=== PATIENT | male | born 1960 | race Caucasian/White ===

== ENCOUNTER 2019-01-19 14:19 | Outpatient (RCR) | payer MEDICARE, MEDICAID, SELFPAY | END 2019-02-13 00:01 | LOC: WOUND 14:19 | PROVIDERS: Family Provider Nurse Practitioner; Visit Provider Surgery | DX: I96 Gangrene, not elsewhere classified (principal); L97.522 Non-pressure chronic ulcer of other part of left foot with fat layer exposed | CPT/HCPCS: 11042 ==

== ENCOUNTER 2019-02-16 | Outpatient (CLI) | payer MEDICARE, MEDICAID, SELFPAY ==
[2019-02-16 20:52] LABS: INR 5.16 (0.8-1.2)
== END 2019-02-16 23:00 | disposition home or self-care (01) ==
LOC: LAB 10-01 13:18
PROVIDERS: Family Provider Nurse Practitioner; PCP Nurse Practitioner; Visit Provider Nurse Practitioner
DX: I48.91 Unspecified atrial fibrillation (principal)
CPT/HCPCS: 85610

== ENCOUNTER 2019-02-16 21:27 | Emergency (ER) | payer MEDICARE, MEDICAID, SELFPAY ==
[2019-02-16 21:37] VITALS: BP 122/81; PULSE 75; RESP 18; TEMP 36.8; O2SAT 95; BMI 29.6
--- NOTE | 2019-02-17 00:20 | ED_ITS ---
HPI - Extremity Problem General: Chief complaint: Extremity Injury, Lower Stated complaint: ABD PAIN Time Seen by Provider: 02/17/19 00:20 Source: patient Mode of arrival: ambulatory Limitations: no limitations History of Present Illness: HPI Narrative: had foot ulcer debrided today at wound care and has had trouble with bleeding since MD Complaint: other (bleeding) Location: left Radiation: none Relieving factors: nothing Exacerbating factors: nothing Associated symptoms: Reports no associated symptoms Context: other (recent debridement) Review of Systems Skin/Breast: Reports: other (bleeding to L foot ulcer) PFSH ED PFSH: Statuses (acute, chronic, etc) shown below reflect problem list status as previously entered and may not be historically accurate Social History Smoking and tobacco status: former smoker Physical Exam Const: COMMON NORMALS: no apparent distress, oriented x3, no limitations and well nourished Neuro: COMMON NORMALS: oriented x3 Skin: NARRATIVE SKIN EXAM: stage II-III ulcer to plantar L great toe; very scant oozing/bleeding noted Course Vital Signs: Vital signs: Vital Signs Temperature 98.3 F 02/16/19 21:37 Pulse Rate 75 02/16/19 21:37 Respiratory Rate 18 02/16/19 21:37 Blood Pressure 122/81 02/16/19 21:37 Pulse Oximetry 95 02/16/19 21:37 MDM - Extremity (Nontraumatic) MDM Narrative: Medical decision making narrative: bleeding subsided with silver nitrate and surgicel; INR from yesterday noted to be slightly over 5; he tells me he takes 6mg daily and 7.5 on tuesdays and ; will have him skip tmrw dose and take 3mg on Tuesday and have him repeat INR on tuesday. precautions given regarding uncontrollable bleeding from ulcer Discharge Plan Discharge Patient Disposition: Home, Self-Care Clinical Impression: Pressure ulcer of toe Qualifiers: Pressure injury stage: stage 3 Laterality: left Qualified Code(s): L89.893 - Pressure ulcer of other site, stage 3 Condition: Stable Prescriptions: No Action warfarin RF: 0 Discharge Orders: Discharge Order (Routine); Ordered 02/17/19 Ordered By: Mirna Oviedo Referrals: Chanelle Cavazos, FOREST SCIENCE PROFESSOR-C [Primary Care Provider] - Activity Restrictions/Additional Instructions: Keep dressing in place until tomorrow unless you soak through-as instructed re- dress with the dressings given to you and hold pressure x 15-20 mins. If you cannot get bleeding to stop then return to ED. YOUR INR THAT WAS CHECKED YESTERDAY WAS SLIGHTLY OVER 5. I WANT YOU TO SKIP YOUR WARFARIN DOSE FOR TUESDAY AND TAKE HALF YOUR NORMAL DOSE ON TUESDAY. YOU NEED TO HAVE YOUR INR RE-CHECKED ON TUESDAY. Coding Level of Care Code ED Home Child Care Provider for Joe Gilliam Exam Problem Focused
[2019-02-17 02:16] VITALS: BP 140/77; PULSE 94; RESP 14; TEMP 37; O2SAT 97
== END 2019-02-17 02:10 | disposition home or self-care (01) ==
PROVIDERS: Emergency Provider Physician Assistant; Family Provider Nurse Practitioner; PCP Nurse Practitioner
DX: L89.893 Pressure ulcer of other site, stage 3 (principal); Z87.891 Personal history of nicotine dependence
CPT/HCPCS: 99281

== ENCOUNTER 2019-03-07 14:29 | Outpatient (CLI) | payer MEDICARE, MEDICAID, SELFPAY | END 2019-03-07 14:30 | disposition home or self-care (01) | LOC: LAB 14:32 | PROVIDERS: Family Provider Nurse Practitioner; PCP Nurse Practitioner; Visit Provider Internal Medicine Cardiovascular Disease | DX: I48.91 Unspecified atrial fibrillation (principal) | CPT/HCPCS: 85610 ==

== ENCOUNTER 2019-03-09 14:45 | Outpatient (RCR) | payer MEDICARE, MEDICAID, SELFPAY | END 2019-03-16 23:59 | disposition home or self-care (01) | LOC: WOUND 14:45 | PROVIDERS: Family Provider Nurse Practitioner; PCP Nurse Practitioner; Visit Provider Surgery | DX: L97.512 Non-pressure chronic ulcer of other part of right foot with fat layer exposed (principal) | CPT/HCPCS: 11042; 11043 ==

== ENCOUNTER 2019-03-14 17:48 | Outpatient (CLI) | payer MEDICARE, MEDICAID, SELFPAY ==
[2019-03-14 19:18] LABS: INR 1.64 (0.8-1.2)
== END 2019-03-14 17:49 | disposition home or self-care (01) ==
LOC: LAB 17:50
PROVIDERS: Absent Provider Internal Medicine Cardiovascular Disease; Family Provider Nurse Practitioner; PCP Nurse Practitioner; Visit Provider Internal Medicine Cardiovascular Disease
DX: I48.91 Unspecified atrial fibrillation (principal)
CPT/HCPCS: 85610

== ENCOUNTER 2019-03-30 13:47 | Outpatient (RCR) | payer MEDICARE, MEDICAID, SELFPAY | END 2019-04-14 23:59 | disposition home or self-care (01) | LOC: WOUND 13:47 | PROVIDERS: Family Provider Nurse Practitioner; PCP Nurse Practitioner; Visit Provider Surgery | DX: I96 Gangrene, not elsewhere classified (principal); L97.522 Non-pressure chronic ulcer of other part of left foot with fat layer exposed | CPT/HCPCS: 11042 ==

== ENCOUNTER 2019-03-31 18:20 | Outpatient (CLI) | payer MEDICARE, MEDICAID, SELFPAY ==
[2019-03-31 19:24] LABS: INR 2.24 (0.8-1.2)
== END 2019-03-31 18:21 | disposition home or self-care (01) ==
LOC: LAB 18:40
PROVIDERS: Family Provider Nurse Practitioner; PCP Nurse Practitioner; Visit Provider Internal Medicine Cardiovascular Disease
DX: I48.91 Unspecified atrial fibrillation (principal)
CPT/HCPCS: 85610

== ENCOUNTER 2019-04-04 07:16 | Inpatient (IN) | payer MEDICARE, MEDICAID, SELFPAY ==
[2019-04-04] VITALS (8 sets, daily range): BP systolic 133–209; BP diastolic 81–111; PULSE 71–136; RESP 15–30; TEMP 36.4–38.1; O2SAT 89–100; BMI 28.2
--- NOTE | 2019-04-04 07:18 | XR_ITS ---
WS: [id number] XR chest 1V portable [id number] REASON FOR EXAM: dyspnea/cough FINDINGS: Endotracheal tube in adequate position. Seen at the T3 level. Mitral valve replacement carlson ges. There is increased markings seen bilaterally suggesting low-grade pulmonary edema. There is cardiomegaly seen. There is evidence of a single electrode pacemaker with intact wiring. XR/XR chest 1V portable [id number] IMPRESSION: Endotracheal tube satisfactory position at the T3 level Mild congestive heart failure with pulmonary edema. A single electrode pacemaker. Mitral valve replacement with sternotomy changes.
--- NOTE | 2019-04-04 07:18 | CT_ITS ---
WS: [id number] CT HEAD TECHNIQUE: Noncontrast CT of the head obtained from the skullbase to the vertex. CLINICAL INFORMATION: unresponsive COMPARISON: None. DLP: 871.[address] scans at [facility] use at least one of these dose optimization techniques: automat ed exposure control; mA and/or kV adjustment per patient size (includes targeted exams where dose is matched to clinical indication); or iterative reconstruction. FINDINGS: Acute hemorrhagic subdural hematoma measuring 1.7 cm in maximum transverse dimension. This extends ov erlying the left cerebral convexity and left temporal lobe. This extends inferiorly to the inferior f rontal lobe. Hemorrhagic blood products extend along the left middle cranial fossa. Large amount of l eft to right mass effect with subfalcine herniation. Midline shift measures 2.0 cm. Effacement of the left lateral ventricle. Early trapping of the right occipital and temporal horn. Subdural blood products along the falx. Additional subdural blood products along the left greater rolando n right tentorium. Effacement of the suprasellar cistern. Effacement of the ambient cisterns. Fourth ventricle remains patent. Mild supratentorial mass effect. Mastoid air cells well aerated. Fluid with in the right maxillary sinus. Notified Paresh Olivarez DO at 04/04/2019 8:15AM. CT/CT head wo con* [id number] IMPRESSION: 1. Large left frontal convexity acute subdural hematoma extending over the lef t frontoparietal lobes and into the left middle cranial fossa. 2. Large amount of left right midline shift with subfalcine herniation. Left t o right midline shift measures 2 cm. 3. Effacement of the left lateral ventricle. Trapping of the right occipital h orn and right temporal horn. 4. Suprasellar cistern is effaced with effacement of the ambient cisterns. Eff acement of the prepontine cistern. 5. Fourth ventricle remains patent. 6. Additional subdural blood products along the falx and left greater than rig ht tentorium.
--- NOTE | 2019-04-04 07:19 | ED_ITS ---
Entered by Beatris Banda, acting as scribe for Paresh Olivarez DO HPI - General Adult General: Chief complaint: Altered Mental Status Stated complaint: unresponsive Time Seen by Provider: 04/04/19 07:19 Source: EMS Mode of arrival: EMS Limitations: other (unresponsive) History of Present Illness: HPI narrative: 59-year-old male, per ems pt was found down at home, spouse called EMS to the home due to him being unresponsive. Ems states the pt was found in his chair slumped over, pt did move one foot but would not respond so they intubated him. pt was brought to ED for further evaluation , pt is unable to respond or any questions no family. MD complaint: unresponsive Onset (ago): day(s) Severity: severe Treatments prior to arrival: other (EMS intubated pt.) Review of Systems General: Reports: ROS unobtainable due to medical condition (unresponsive, intubated,no family) PFS ED PFSH: Medical History Atrial fibrillation Chronic anticoagulation Hypertension Marfan syndrome Retinal detachment Surgical History History of aortic valve repair History of cataract surgery History of mitral valve repair History of orthopedic surgery Knee Family History Father Marfans syndrome Social History Smoking and tobacco status: unknown if ever smoked Physical Exam Const: EXAM LIMITATIONS: altered mental status GENERAL APPEARANCE: in distress NUTRITIONAL APPEARANCE: obese ORIENTATION/CONSCIOUSNESS: Yes obtunded HENMT: COMMON NORMALS: normocephalic, head/scalp atraumatic, hearing grossly normal bilaterally, external ears normal, EAC's normal, TM's normal bilaterally, nasal mucous membranes and turbinates normal, moist oral mucous membranes and oropharynx normal HEAD & SCALP: normocephalic and atraumatic NOSE: nasal mucous membranes and turbinates normal EXTERNAL EAR: Yes external ears normal EXTERNAL AUDITORY CANAL: EAC's normal TYMPANIC MEMBRANE: TM's normal bilaterally Eye: COMMON NORMALS: PERRL, EOMs intact bilaterally, conjunctivae normal and no scleral icterus CONJUNCTIVA: Yes conjunctivae normal PUPIL: Yes PERRL Neck/C-Spine: COMMON NORMALS: no lymphadenopathy, supple and no JVD Lymph: LYMPHATIC: no lymphadenopathy noted and no lymphedema noted Resp: EFFORT & INSPECTION: Yes respiratory distress and Yes uses accessory muscles AUSCULTATION: rhonchi and diminished lung sounds Cardio: COMMON NORMALS: no JVD, regular rate, regular rhythm and no murmurs RATE: regular rate RHYTHM: regular rhythm GI: COMMON NORMALS: soft to palpation and no hepatosplenomegaly AUSCULTATION: Yes normoactive bowel sounds PALPATION: Yes soft, No tender, No guarding and Yes no hepatosplenomegaly Extremity: COMMON NORMALS: normal to inspection, normal capillary refill, no clubbing, cyanosis or edema, no calf tenderness and no pedal edema Skin: COMMON NORMALS: no rashes or lesions noted GENERAL SKIN EXAM: no rashes or lesions noted Course ED course: Patient initially came in in severe respiratory distress he was intubated and started on ventilator initially family was inconclusive there was some friends available and a aunt and uncle but they did not wish to make any decisions regarding his care and referred it to a brother. He was not available initially. They did not believe they wanted to transfer him. Also asked about using reversal agents for his Coumadin and they declined that defer to his brother's decision as well. When the brother arrived he discussed the case with myself and after long discussion decided they did not wish to do anything. He asked that the patient be extubated and given comfort cares. Patient has a very large subdural hematoma and already shown signs of effacement of the cerebellar tonsils. It is unknown length of time since this began they do not wish to pursue any treatment they are afraid he may be left with significant deficits which is definitely possible. He has other comorbidities that they recognize and do not wish to go any further on this. This was verified with the sugar house supervisor and the patient's nurse present in the room brother reiterated he wanted comfort cares only. Reevaluation(s): Reevaluation #1: had a conversation with pt brother they want to make him comfort care Vital Signs: Vital signs: Vital Signs Temperature 103.6 F H 04/05/19 01:28 Pulse Rate 59 L 04/05/19 05:25 Respiratory Rate 18 04/05/19 05:25 Blood Pressure 130/58 04/05/19 05:25 Pulse Oximetry 82 L 04/05/19 05:25 MDM - General Adult Lab Data: Labs: Lab Results 04/04/19 04/04/19 04/04/19 Range/Units 07:20 07:20 07:20 WBC 12.8 H (4.0-10.0) 10^3/ uL RBC 3.73 L (4.1-5.3) 10^6/u L Hgb 11.4 L (11.7-16.6) g/dL Hct 36.1 L (42.0-52.0) % MCV 96.8 H (80-94) fL MCH 30.6 (28.0-34.0) pg MCHC 31.6 (30.0-36.0) g/dL RDW 14.5 (12.1-15.1) % Plt Count 210 (130-400) 10^3/c mm MPV 9.9 (7.4-10.4) fL Neut % (Auto) 84.1 % Lymph % (Auto) 7.7 % Traverse % (Auto) 5.5 % Eos % (Auto) 1.6 % Baso % (Auto) 0.3 % Neut # (Auto) 10.8 H (1.8-7.7) 10^3/u L Lymph # (Auto) 1.0 (0.8-4.8) 10^3/u L Traverse # (Auto) 0.7 (0.2-0.9) 10^3/u L Eos # (Auto) 0.2 (0.0-0.8) 10^3/u L Baso # (Auto) 0.0 (0.0-0.1) 10^3/u L Nucleated RBC % (a uto) 0 % Nucleated RBCs # 0.0 /100WBC PT (10.5-13.3) SECO NDS INR (0.8-1.2) APTT (23.9-36.7) SECO NDS Specimen Type Sample Site ABG pH (7.35-7.45) ABG pCO2 (35-45) mmHg ABG pO2 (80.0-100.0) mmH g ABG HCO3 (22-26) mmol/L ABG O2 Saturation ABG Base Excess (-2.0-2.0) mmol/ L Alexandro Test A-a O2 Gradient (5-10) mmHg Hematocrit (42-52) % Hgb O2 Saturation (95-100) % Carboxyhemoglobin (0.4-20.1) %THgb Methemoglobin (0.4-1.5) % Total Hemoglobin (14-18) g/dL Ionized Calcium (1.1-1.4) mmol/L O2 Delivery Device FiO2 % Evp Chief Exploration Officer ID Sodium 136 (136-145) mmol/L Potassium 4.4 (3.5-5.1) mmol/L Chloride 101 (98-107) mmol/L Carbon Dioxide 23 (22-29) mmol/L Anion Gap 16.4 (5-19) BUN 16 (6-20) mg/dL Creatinine 0.9 (0.7-1.2) mg/dL GFR Calculation 86.7 L (90-130) mL/min Glucose 186 H (65-115) mg/dL Calcium 9.5 (8.5-10.5) mg/dL Total Bilirubin 0.8 (0.15-1.2) mg/dL AST 27 (0-40) U/L ALT 19 (0-41) U/L Alkaline Phosphata se 111 (40-130) IU/L Creatine Kinase 308 (39-308) U/L CK-MB (CK-2) 3.5 (0-10.4) ng/mL CK-MB (CK-2) Rel I ndex (0.0-5.3) % Troponin T Baselin e 8 (0-15) ng/mL Troponin T 120 Min igiugig (0-15) ng/mL Delta Troponin T (0-10) ABS# NT-Pro-B Natriuret Pep (0-125) pg/mL Total Protein 7.9 (6.6-8.7) g/dL Albumin 3.7 (3.5-5.2) g/dL Globulin 4.2 (1.3-4.6) g/dL Lipase 14 (13-60) U/L Urine Color (Yellow) Urine Appearance (CLEAR) Urine pH (5-7) Ur Specific Gravit y (1.005-1.030) Urine Protein (Negative) Urine Glucose (UA) (Normal) Urine Ketones (Negative) Urine Occult Blood (Negative) Urine Nitrate (Negative) Urine Bilirubin (NEGATIVE) Urine Urobilinogen (Negative) mg/dL Ur Leukocyte Skylar ase (Negative) Urine RBC (0-2) /hpf Urine WBC (0-5) /hpf Ur Squamous Epith Cells (0-5) Urine Bacteria (NONE) Serum Ketones (Negative) 04/04/19 04/04/19 04/04/19 Range/Units 07:20 07:20 07:20 WBC (4.0-10.0) 10^3/ uL RBC (4.1-5.3) 10^6/u L Hgb (11.7-16.6) g/dL Hct (42.0-52.0) % MCV (80-94) fL MCH (28.0-34.0) pg MCHC (30.0-36.0) g/dL RDW (12.1-15.1) % Plt Count (130-400) 10^3/c mm MPV (7.4-10.4) fL Neut % (Auto) % Lymph % (Auto) % Traverse % (Auto) % Eos % (Auto) % Baso % (Auto) % Neut # (Auto) (1.8-7.7) 10^3/u L Lymph # (Auto) (0.8-4.8) 10^3/u L Traverse # (Auto) (0.2-0.9) 10^3/u L Eos # (Auto) (0.0-0.8) 10^3/u L Baso # (Auto) (0.0-0.1) 10^3/u L Nucleated RBC % (a uto) % Nucleated RBCs # /100WBC PT 29.40 H (10.5-13.3) SECO NDS INR 2.74 H (0.8-1.2) APTT 58.1 H (23.9-36.7) SECO NDS Specimen Type Sample Site ABG pH (7.35-7.45) ABG pCO2 (35-45) mmHg ABG pO2 (80.0-100.0) mmH g ABG HCO3 (22-26) mmol/L ABG O2 Saturation ABG Base Excess (-2.0-2.0) mmol/ L Alexandro Test A-a O2 Gradient (5-10) mmHg Hematocrit (42-52) % Hgb O2 Saturation (95-100) % Carboxyhemoglobin (0.4-20.1) %THgb Methemoglobin (0.4-1.5) % Total Hemoglobin (14-18) g/dL Ionized Calcium (1.1-1.4) mmol/L O2 Delivery Device FiO2 % Evp Chief Exploration Officer ID Sodium (136-145) mmol/L Potassium (3.5-5.1) mmol/L Chloride (98-107) mmol/L Carbon Dioxide (22-29) mmol/L Anion Gap (5-19) BUN (6-20) mg/dL Creatinine (0.7-1.2) mg/dL GFR Calculation (90-130) mL/min Glucose (65-115) mg/dL Calcium (8.5-10.5) mg/dL Total Bilirubin (0.15-1.2) mg/dL AST (0-40) U/L ALT (0-41) U/L Alkaline Phosphata se (40-130) IU/L Creatine Kinase (39-308) U/L CK-MB (CK-2) (0-10.4) ng/mL CK-MB (CK-2) Rel I ndex (0.0-5.3) % Troponin T Baselin e (0-15) ng/mL Troponin T 120 Min igiugig (0-15) ng/mL Delta Troponin T (0-10) ABS# NT-Pro-B Natriuret Pep 1522 H (0-125) pg/mL Total Protein (6.6-8.7) g/dL Albumin (3.5-5.2) g/dL Globulin (1.3-4.6) g/dL Lipase (13-60) U/L Urine Color (Yellow) Urine Appearance (CLEAR) Urine pH (5-7) Ur Specific Gravit y (1.005-1.030) Urine Protein (Negative) Urine Glucose (UA) (Normal) Urine Ketones (Negative) Urine Occult Blood (Negative) Urine Nitrate (Negative) Urine Bilirubin (NEGATIVE) Urine Urobilinogen (Negative) mg/dL Ur Leukocyte Skylar ase (Negative) Urine RBC (0-2) /hpf Urine WBC (0-5) /hpf Ur Squamous Epith Cells (0-5) Urine Bacteria (NONE) Serum Ketones Negative (Negative) 04/04/19 04/04/19 04/04/19 Range/Units 07:28 08:04 09:05 WBC (4.0-10.0) 10^3/ uL RBC (4.1-5.3) 10^6/u L Hgb (11.7-16.6) g/dL Hct (42.0-52.0) % MCV (80-94) fL MCH (28.0-34.0) pg MCHC (30.0-36.0) g/dL RDW (12.1-15.1) % Plt Count (130-400) 10^3/c mm MPV (7.4-10.4) fL Neut % (Auto) % Lymph % (Auto) % Traverse % (Auto) % Eos % (Auto) % Baso % (Auto) % Neut # (Auto) (1.8-7.7) 10^3/u L Lymph # (Auto) (0.8-4.8) 10^3/u L Traverse # (Auto) (0.2-0.9) 10^3/u L Eos # (Auto) (0.0-0.8) 10^3/u L Baso # (Auto) (0.0-0.1) 10^3/u L Nucleated RBC % (a uto) % Nucleated RBCs # /100WBC PT (10.5-13.3) SECO NDS INR (0.8-1.2) APTT (23.9-36.7) SECO NDS Specimen Type Arterial Sample Site Radial, left ABG pH 7.27 L (7.35-7.45) ABG pCO2 53.6 H (35-45) mmHg ABG pO2 339.0 H* (80.0-100.0) mmH g ABG HCO3 24.6 (22-26) mmol/L ABG O2 Saturation 100.0 ABG Base Excess -2.9 L (-2.0-2.0) mmol/ L Alexandro Test Pos A-a O2 Gradient 307.3 H (5-10) mmHg Hematocrit 35.3 L (42-52) % Hgb O2 Saturation 97.8 (95-100) % Carboxyhemoglobin 1.1 (0.4-20.1) %THgb Methemoglobin 1.1 (0.4-1.5) % Total Hemoglobin 11.5 L (14-18) g/dL Ionized Calcium 1.2 (1.1-1.4) mmol/L O2 Delivery Device Ambu FiO2 100.0 % Evp Chief Exploration Officer ID cak Sodium 140.0 (136-145) mmol/L Potassium 4.1 (3.5-5.1) mmol/L Chloride (98-107) mmol/L Carbon Dioxide (22-29) mmol/L Anion Gap (5-19) BUN (6-20) mg/dL Creatinine (0.7-1.2) mg/dL GFR Calculation (90-130) mL/min Glucose 174.0 H (65-115) mg/dL Calcium (8.5-10.5) mg/dL Total Bilirubin (0.15-1.2) mg/dL AST (0-40) U/L ALT (0-41) U/L Alkaline Phosphata se (40-130) IU/L Creatine Kinase (39-308) U/L CK-MB (CK-2) (0-10.4) ng/mL CK-MB (CK-2) Rel I ndex (0.0-5.3) % Troponin T Baselin e (0-15) ng/mL Troponin T 120 Min igiugig 9.78 (0-15) ng/mL Delta Troponin T 1.78 (0-10) ABS# NT-Pro-B Natriuret Pep (0-125) pg/mL Total Protein (6.6-8.7) g/dL Albumin (3.5-5.2) g/dL Globulin (1.3-4.6) g/dL Lipase (13-60) U/L Urine Color Yellow (Yellow) Urine Appearance Clear (CLEAR) Urine pH 5 (5-7) Ur Specific Gravit y 1.015 (1.005-1.030) Urine Protein 1+ H (Negative) Urine Glucose (UA) Norm (Normal) Urine Ketones 1+ H (Negative) Urine Occult Blood Trace H (Negative) Urine Nitrate Negative (Negative) Urine Bilirubin Neg (NEGATIVE) Urine Urobilinogen Norm (Negative) mg/dL Ur Leukocyte Skylar ase Negative (Negative) Urine RBC 0-4 H (0-2) /hpf Urine WBC Rare (0-5) /hpf Ur Squamous Epith Cells 0-4 H (0-5) Urine Bacteria Trace (NONE) Serum Ketones (Negative) Discharge Plan Discharge Patient Disposition: Placed in Observation Admit Provider: Lauren Banks Clinical Impression: Subdural hematoma Condition: Interventions: ED Discharge Assessment Last Done: 04/04/19 12:34 Discharge Date/Time: 04/04/19 12:48 Coding Level of Care Code ED Detasseler for Chg Fwd Exam Comprehensive The documentation recorded by the Solo johns Bridget Annette, accurately reflects the service I personally performed and the decisions made by Juanis ching Curtis L, DO Apr 04, 2019 07:16
[2019-04-04 07:38] LABS: Hematocrit 36.1 % (42.0-52.0); Hemoglobin 11.4 g/dL (11.7-16.6); Mean Corpuscular HGB Conc 31.6 g/dL (30.0-36.0); Mean Corpuscular Hemoglobin 30.6 pg (28.0-34.0); Mean Corpuscular Volume 96.8 fL (80-94); Red Blood Count 3.73 10^6/uL (4.1-5.3); White Blood Count 12.8 10^3/uL (4.0-10.0)
[2019-04-04 07:39] LABS: Basophils % 0.3 %; Eosinophils % 1.6 %; Lymphocytes % 7.7 %; Mean Platelet Volume 9.9 fL (7.4-10.4); Monocytes % 5.5 %; Neutrophils # 10.8 10^3/uL (1.8-7.7); Neutrophils % 84.1 %; Platelet Count 210 10^3/cmm (130-400); Red Cell Distribution Width 14.5 % (12.1-15.1)
[2019-04-04 07:39] LABS: ABG PCO2 53.6 mmHg (35-45); ABG PH Result 7.27 (7.35-7.45); Alveolar-Arterial Oxygen Gradi 307.3 mmHg (5-10); Arterial Blood Gas Hematocrit 35.3 % (42-52); Base Excess ABG -2.9 mmol/L (-2.0-2.0); Blood Gas Allen Test Pos; Blood Gas Sample Site Radial, left; Blood Gas Sample Type Arterial; Carboxyhemoglobin 1.1 %THgb (0.4-20.1); HCO3 ABG 24.6 mmol/L (22-26); HGB O2 Sat 97.8 % (95-100); Ionized Calcium Level - ABG 1.2 mmol/L (1.1-1.4); Methemoglobin 1.1 % (0.4-1.5); Oxygen Device AMBU; Potassium Level - ABG 4.1 mmol/L (3.5-5.0); Total Hemoglobin 11.5 g/dL (14-18)
[2019-04-04 07:40] LABS: Eosinophils # 0.2 10^3/uL (0.0-0.8); Monocytes # 0.7 10^3/uL (0.2-0.9); Nucleated Red Blood Cells % 0 %
[2019-04-04 07:53] LABS: Ketone (Acetest) Serum Negative (Negative)
--- NOTE | 2019-04-04 07:57 | XR_ITS ---
WS: [id number] XR chest 1V portable [id number] REASON FOR EXAM: intubated FINDINGS: Endotracheal tube is seen in the tip is 4.75 cm from the cooper. The single electrode pacemaker is noted. Mitral valve replacement changes. With sternotomy findings. There appears to be mild alveolar infiltrates bilaterally suggesting mild pulmonary edema. XR/XR chest 1V portable [id number] IMPRESSION: Endotracheal tube satisfactory position. A feeding tube is seen the tip is not well identified but appears to be in the stomach area. There is mild pulmonary edema. Cardiomegaly.
[2019-04-04 08:03] LABS: Alanine Aminotransferase 19 U/L (0-41); Albumin Level 3.7 g/dL (3.5-5.2); Alkaline Phosphatase 111 IU/L (40-130); Anion Gap 16.4 (5-19); Aspartate Amino Transferase 27 U/L (0-40); Blood Urea Nitrogen 16 mg/dL (6-20); Calcium 9.5 mg/dL (8.5-10.5); Carbon Dioxide 23 mmol/L (22-29); Chloride 101 mmol/L (98-107); Globulin 4.2 g/dL (1.3-4.6); Glomerular Filtration Rate 86.7 mL/min (90-130); Glucose 186 mg/dL (65-115); Potassium 4.4 mmol/L (3.5-5.1); Sodium 136 mmol/L (136-145); Total Bilirubin 0.8 mg/dL (0.15-1.2); Total Protein 7.9 g/dL (6.6-8.7)
[2019-04-04 08:04] LABS: Troponin(5th) Baseline 8 ng/mL (0-15)
[2019-04-04 08:05] LABS: Lipase 14 U/L (13-60)
[2019-04-04 08:17] LABS: Creatine Phosphokinase 308 U/L (39-308)
[2019-04-04 08:25] LABS: NT Pro B Type Natriuretic Pept 1522 pg/mL (0-125)
[2019-04-04 08:37] LABS: CKMB 3.5 ng/mL (0-10.4)
[2019-04-04 08:41] LABS: Protein Urine 1+ (Negative); Specific Gravity, Urine 1.015 (1.005-1.030); Urine Appearance Clear (CLEAR); Urine Color Yellow (Yellow); pH Urine 5 (5-7)
[2019-04-04 08:42] LABS: Add Urine Microscopic? YES; Bilirubin Urine Neg (NEGATIVE); Blood Urine Trace (Negative); Glucose Urine UA Norm (Normal); Ketones Urine 1+ (Negative); Leukocyte Esterase Urine Negative (Negative); Nitrate Urine Negative (Negative); Urobilinogen Urine Norm (Negative)
[2019-04-04 08:52] LABS: Add Urine Culture? No; Bacteria Urine TRACE; RBC Urine 0-4 /hpf (0-2); Squamous Epithelial Cell Urine 0-4 (0-5); WBC Urine RARE /hpf (0-5)
[2019-04-04 08:57] LABS: INR 2.74 (0.8-1.2); Partial Thromboplastin Time 58.1 SECONDS (23.9-36.7)
--- NOTE | 2019-04-04 09:40 | PC.NURSE ---
patient extubated per agreement by brother. consent witnessed by household assistant, primary nurse and emd
[2019-04-04 09:41] LABS: Troponin 5 2HR 9.78 ng/mL (0-15); Troponin 5 2HR Delta 1.78 ABS# (0-10)
[2019-04-04] MEDS: LORazepam 2 mg/mL INJ 1 mL (09:51)
[2019-04-04] MEDS: LORazepam 2 mg/mL INJ 1 mL 1 MG IVP (09:55)
[2019-04-04] MEDS: morphine 4 mg/mL SDV 1 mL IVP (10:06)
--- NOTE | 2019-04-04 10:37 | PC.CHAP ---
Pastoral Care Encounter/Spiritual Assessment Type of Contact [] Declined special education educational assistant visit [] Patient/Family/Request visit [] Outpatient visit [] Follow-up visit [] Physician referral [] Code/Alert [] Routine visit [] Staff referral [x] Actively dying [] Patient sleeping [x] Family support [] [] Out of room [] Palliative care [] [] Receiving care in room [] Pre-surgical visit [] Trauma [] Long length of stay [] ICU visit [] Other: Relational/Emotional Strength [] Patient feels connected with others/family/visitors/staff [] Distress [] Loneliness/isolation [] Abandonment Spirituality of Patient [] Person of Sandra [] Attends Anabaptism of their Sandra [] Believes in Prayer [] Reads Bible or Latter Day materials [] There are Spiritual issues to be addressed Multiple Sclerosis Nurse Interventions [x] Prayer [x] Active listening [x] Non-anxious presence [x] Spiritual/emotional support [] Crisis/trauma care [] Spiritual counseling [x] Bereavement support [] Provided bereavement packet [] Provided Bible/devotional materials [] Provided toy/stuffed animal, coloring book to patient or family member [] Provided Communion [] Anointing/[place] [] Salvation [] Completed spiritual assessment [] Other: Impact on Illness or Injury [] Angry [] Fearful [] Anxious [] Often cries [] Exhaustion [] Unable to work [] Unable to attend episcopalian [] Unable to walk/stand [] Unable to read [] Unable to drive [] Unable to eat/drink [] Unable to sleep [] Unable to be with family [] Patient intubated [] Other: Patient is in dying process Summary Multiple Sclerosis Nurse was paged to the ER to support family, patient is in dying process. Multiple Sclerosis Nurse read Psalm 23 as family gather around patients bedside. Family shared they had said good byes and shared stories. Multiple Sclerosis Nurse prayed and inquired about any needs. Family is doing well and has no needs at this time. Multiple Sclerosis Nurse will check with family throughout the morning. Time spent with patient 20 min
--- NOTE | 2019-04-04 12:01 | PC.NURSE ---
patient to be admitted to floor for comfort care only, vital sighns deferred per DR FRAGOSO
[2019-04-04] MEDS: LORazepam 2 mg/mL INJ 1 mL IVP ×2 (12:24→22:19)
--- NOTE | 2019-04-04 12:24 | PM.HP ---
Providers/Chief Complaint Admitting Physician: Lauren Banks DO Chief Complaint: unresponsive History of Present Illness GAUDENCIO HASTINGS is a 59 year old male with a history of Marfan syndrome that presented to the emergency department via EMS unresponsive. Patient was down for an unknown amount of time and found in a chair this morning. Was reported to have agonal respirations. Patient was seen and evaluated in the emergency department noted to have concern for subdural hematoma, initially intubated, however after family arrived and reviewed the diagnosis and prognosis patient was transitioned to comfort care measures only and extubated in the emergency department. Patient is being admitted for comfort care as expected to have eminent Review of Systems General: Reports: ROS unobtainable due to medical condition Medications/Allergies Home Medications Medication Instructions Recorded Confirmed Last Taken Type aspirin [Aspir-81] 81 mg PO DAILY 04/04/19 04/04/19 Unknown History duloxetine [Cymbalta] 20 mg PO BID 04/04/19 04/04/19 Unknown History ferrous gluconate 324 mg PO EVERY OTHER DAY 04/04/19 04/04/19 Unknown History furosemide 40 mg PO DAILY 04/04/19 04/04/19 Unknown History isosorbide mononitrate 30 mg PO DAILY 04/04/19 04/04/19 Unknown History lisinopril 10 mg PO DAILY 04/04/19 04/04/19 Unknown History metoprolol tartrate See Rx Instructions .ROUTE .COMPLEX 04/04/19 04/04/19 Unknown History potassium chloride 10 meq PO DAILY 04/04/19 04/04/19 Unknown History warfarin See Rx Instructions .ROUTE .COMPLEX 04/04/19 04/04/19 Unknown History warfarin See Rx Instructions .ROUTE .COMPLEX 04/04/19 04/04/19 Unknown History warfarin See Rx Instructions .ROUTE .COMPLEX 04/04/19 04/04/19 Unknown History warfarin See Rx Instructions .ROUTE .COMPLEX 04/04/19 04/04/19 Unknown History PFSH Acute PFSH: Medical History (Updated 04/04/19 @ 12:41 by Lauren Banks DO) Atrial fibrillation Chronic anticoagulation Hypertension Marfan syndrome Retinal detachment Surgical History (Updated 04/04/19 @ 12:38 by Lauren Banks DO) History of aortic valve repair History of cataract surgery History of mitral valve repair History of orthopedic surgery Knee Family History (Updated 04/04/19 @ 12:39 by Lauren Banks DO) Father Marfans syndrome Social History Smoking and tobacco status: unknown if ever smoked Vitals/I&O/Wt Last Vital Signs Temp 97.5 F L 04/04/19 07:18 Pulse 71 04/04/19 07:56 Resp 16 04/04/19 10:06 BP 209/111 04/04/19 07:56 Pulse Ox 89 L 04/04/19 07:56 Weight last 48 hrs Weight 99.79 kg Physical Exam Narrative: EXAM NARRATIVE: General: Unresponsive Cardiovascular: Exam deferred Respiratory: Agonal respirations, further exam deferred due to patient being on comfort care only Abdomen: Exam deferred Neurologic: unresponsive, agonal respirations Urinary Catheter Management^: Metz: Cath Placed During This Visit: yes Urethral Indwelling: Yes Reason for Continuing Indwelling Catheter: Hospice/Comfort/Palliative Care Urinary Catheter Date of Insertion: 04/04/19 Urinary Catheter Time of Insertion: 08:15 Data : 04/04/19 07:20 04/04/19 07:20 Micro: Microbiology 04/04/19 07:40 Blood Culture - Preliminary Blood SPECIMEN COLLECTED 04/04/19 07:20 Blood Culture - Preliminary Blood SPECIMEN COLLECTED CT Head: I personally reviewed and interpreted this imaging study as follows: Radiologist's impression: IMPRESSION: 1. Large left frontal convexity acute subdural hematoma extending over the left frontoparietal lobes and into the left middle cranial fossa. 2. Large amount of left right midline shift with subfalcine herniation. Left to right midline shift measures 2 cm. 3. Effacement of the left lateral ventricle. Trapping of the right occipital horn and right temporal horn. 4. Suprasellar cistern is effaced with effacement of the ambient cisterns. Effacement of the prepontine cistern. 5. Fourth ventricle remains patent. 6. Additional subdural blood products along the falx and left greater than right tentorium. CXR: Radiologist's impression: IMPRESSION: Endotracheal tube satisfactory position. A feeding tube is seen the tip is not well identified but appears to be in the stomach area. There is mild pulmonary edema. Cardiomegaly. A&P Assessment and plan (1) Subdural hematoma: Large left frontal convexity acute subdural hematoma extending over the left frontotemporal lobes with large left to right midline shift Patient initially intubated by EMS, after review of further imaging and diagnostic studies family arrived and emergency room physician discussed with family and they elected to proceed with comfort care measures only. Patient was extubated in the emergency department and admitted for comfort care measures due to expected within 24 hours Status: Acute Code(s): S06.5X9A - Traumatic subdural hemorrhage with loss of consciousness of unspecified duration, initial encounter (2) Midline shift of brain: As noted above Comfort care measures only Status: Acute Code(s): R90.89 - Other abnormal findings on diagnostic imaging of central nervous system (3) Need for comfort care: We will continue with comfort care measures only No need for new routine vital signs Morphine and Ativan as needed for pain and air hunger Sublingual atropine for secretions or congestion financial services counselor consult Status: Acute (4) Marfan syndrome: Status: Acute Code(s): Q87.40 - Marfan's syndrome, unspecified Attestations Medical Necessity Statement*: Hospitalization due to large subdural hematoma with midline shift and herniation with plan to continue with comfort care measures. Patient to be admitted to the hospital due to expected imminent . Expected survival less than 2 midnights Coding Level of Care Code Acute Field Education Director for Chg Fwd Diagnoses Subdural hematoma S06.5X9A Midline shift of brain R90.89 Need for comfort care Marfan syndrome Q87.40
--- NOTE | 2019-04-04 13:17 | ECG_ITS ---
Measurements Intervals [place] Rate: 79 P: VT: 0 QRS: 15 QRSD: 131 T: 52 QT: 459 QTc: 528 ATRIAL FIBRILLATION with demand pacing INTRAVENTRICULAR CONDUCTION DELAY [130+ ms QRS DURATION] PROBABLE LATERAL MYOCARDIAL INFARCTION , PROBABLY OLD [35 ms Q WAVE IN I/aVL/V5/V6] No previous ECG available for comparison Electronically Signed On 04-04-2019 20:16:35 MODELING AND SIMULATION ANALYST by Glendy Acuña M.D. [email or web address]
[2019-04-04] MEDS: morphine 4 mg/mL SDV 1 mL 2 MG IVP ×2 (18:47→22:20)
[2019-04-05] MEDS: morphine 4 mg/mL SDV 1 mL 2 MG IVP ×6 (00:21→06:38)
[2019-04-05] MEDS: LORazepam 2 mg/mL INJ 1 mL IVP ×6 (00:21→06:37)
[2019-04-05 01:28] VITALS: BP 113/73; PULSE 180; RESP 28; TEMP 39.8; O2SAT 89
[2019-04-05 05:25] VITALS: BP 130/58; PULSE 59; RESP 18; O2SAT 82
--- NOTE | 2019-04-05 07:49 | PC.NURSE ---
Addendum entered by Aide Andino 04/05/19 07:53: no respiration or pulse identified at time of . Original Note: family notified staff patient was no longer breathing. Two RN verification confirmed patient at 0745. Physician and Employee Relations Representative notified.
--- NOTE | 2019-04-05 09:01 | P.DES_ITS ---
Discharge Providers DDS Date of Admission: 04/04/19 11:50 Date Summary Completed: 04/05/19 Attending Provider at Admission: Lauren Banks DO Time of : 07:45 Attending Provider at Discharge: Lauren Banks DO Pronouncing Clinician: Aide CARBAJAL Diagnoses Hospital Diagnoses (1) Subdural hematoma: Problem details: Large subdural hematoma with midline shift (2) Midline shift of brain: (3) Need for comfort care: (4) Marfan syndrome: Reason for Visit Reason for Visit: Reason For Visit: unresponsive Summary Date and Time of : Date of : 04/05/19 Time of : 07:45 Summary: Summary: Patient was seen and evaluated in the emergency department after arrival by EMS. He was noted to have a large subdural hematoma and was reported to be on chronic anticoagulation due to history of valvular repairs including his mitral and aortic valve. Patient has known Marfan syndrome. He was initially intubated and placed on mechanical ventilator by EMS, however after CT report returned into determination of large subdural hematoma with midline shift discussion with family members and their determination was to transition patient to comfort care measures. Patient was extubated in the emergency department with family members at bedside and transition to the medical floor on comfort care measures only. Patient was continued on medications for pain control and air hunger. Patient's brother was at bedside at time of . Time of 745 on 04/05/2019. Family members notified, housekeeping laundry worker notified. No a utopsy requested Additional Data: Advance directives?: No Discharge Plan Discharge Patient Disposition: Condition: Prescriptions: No Action potassium chloride 10 mEq capsule, extended release 10 meq PO DAILY RF: 0 warfarin 7.5 mg tablet See Rx Instructions .ROUTE .COMPLEX RF: 0 isosorbide mononitrate 30 mg tablet extended release 24 hr 30 mg PO DAILY RF: 0 lisinopril 10 mg tablet 10 mg PO DAILY RF: 0 warfarin 2 mg tablet See Rx Instructions .ROUTE .COMPLEX RF: 0 warfarin 5 mg tablet See Rx Instructions .ROUTE .COMPLEX RF: 0 furosemide 20 mg tablet 40 mg PO DAILY RF: 0 warfarin 1 mg tablet See Rx Instructions .ROUTE .COMPLEX RF: 0 metoprolol tartrate 25 mg tablet See Rx Instructions .ROUTE .COMPLEX RF: 0 ferrous gluconate 324 mg (38 mg iron) tablet 324 mg PO EVERY OTHER DAY RF: 0 Aspir-81 81 mg Tablet,Delayed Release (Dr/Ec) 81 mg PO DAILY RF: 0 Cymbalta 20 mg Capsule,Delayed Release(Dr/Ec) 20 mg PO BID RF: 0 Probable Cause of Probable cause of : Subdural hematoma DS Attestations Time Spent in /Discharge Care*: less than 30 min Quality - AMI: AMI present?: No Quality - Stroke: CVA present?: No Symptom Onset Unknown: No Quality - VTE: VTE present?: No Deep Vein Thrombosis/Pulmonary Embolism Pre sent on Admission: No Coding Level of Care Code Acute Planishing Press Operator for Chg Fwd Diagnoses Subdural hematoma S06.5X9A Midline shift of brain R90.89 Need for comfort care Marfan syndrome Q87.40
--- NOTE | 2019-04-05 10:50 | PC.NURSE ---
Family approached nurse to release patient. Nurse notified house mover helper, [facility] organ transplant team was contacted. Oral authorization received from Genia, [email or web address] and brother, and Transplant team to [place] [facility] [place].
--- NOTE | 2019-04-05 11:04 | PC.NURSE ---
Urinary Catheter removed. Balloon deflated, 9 ml removed. Catheter intact.
--- NOTE | 2019-04-05 11:29 | PC.NURSE ---
Postmortem care performed. Patient transferred to [facility]. Patient transported out of room.
== END 2019-04-05 11:32 | disposition expired | DRG 83 ==
LOC: ER 11:46 → MEDSURG 12:25
PROVIDERS: Admitting Provider Family Medicine; Emergency Provider Family Medicine; Visit Provider Family Medicine
DX: S06.5X9A Traumatic subdural hemorrhage with loss of consciousness of unspecified duration, initial encounter (principal); Q87.40 Marfan syndrome, unspecified; Z51.5 Encounter for palliative care; I48.91 Unspecified atrial fibrillation; Z79.01 Long term (current) use of anticoagulants; I10 Essential (primary) hypertension; X58.XXXA Exposure to other specified factors, initial encounter
CPT/HCPCS: 12345; 36415; 36600; 51702; 70450; 71045; 80051; 80053; 81001; 82009; 82550; 82553; 82810; 83690; 83880; 83986; 84484; 85025; 85610; 85730; 87040; 93005; 94002; 94799; 96375; 99283; J2060; J2270